=== PATIENT | male | born 2000 | race African-American/Black ===

== ENCOUNTER 2019-09-29 11:07 | Inpatient (IN) | payer OTHER ==
[~2019-09-29] VITALS: Ht 177.8 cm; Wt 72.6 kg
[2019-09-29 11:08] VITALS: BP 129/71
[2019-09-29 12:26] LABS: URINE BILIRUBIN NEGATIVE (Negative); URINE BLOOD NEGATIVE (Negative); URINE CLARITY CLEAR; URINE COLOR YELLOW; URINE GLUCOSE-RANDOM* NEGATIVE (Negative); URINE KETONES 3+ (Negative); URINE LEUKOCYTES-REFLEX NEGATIVE (Negative); URINE NITRITE-REFLEX NEGATIVE (Negative); URINE PROTEIN (DIPSTICK) NEGATIVE (Negative)
[2019-09-29 12:52] LABS: URINE REDUCING SUBSTANCE NEGATIVE
[2019-09-29 13:07] LABS: HEMATOCRIT 47.1 % (42.0-52.0); HEMOGLOBIN 15.3 gm/dL (14.0-18.0); MCH 27.9 pg (26.0-34.0); MCHC 32.6 g/dL (28.0-37.0); MCV 85.6 fL (80.0-100.0); PLATELET COUNT 145 thou/uL (150-400); RDW 13.5 % (10.5-14.5); WBC 17.4 thou/uL (4.0-11.0)
[2019-09-29 13:20] LABS: CALCIUM 9.7 mg/dL (8.5-10.1); CREATININE 0.9 mg/dL (0.7-1.3); POTASSIUM 3.7 mmol/L (3.5-5.1)
[2019-09-29 13:24] LABS: ALBUMIN 4.9 g/dL (3.4-5.0); TOTAL BILIRUBIN 0.9 mg/dL (<0.1-1.0); TOTAL PROTEIN 8.9 g/dL (6.4-8.2)
[2019-09-29 13:48] LABS: ABSOLUTE NEUTROPHILS 15.3 thou/uL (1.4-8.2); PLATELET ESTIMATE NORMAL
[2019-09-29] MEDS ORDERED: MIRALAX17 GM PO (17:12)
[2019-09-29] MEDS ORDERED: COLACE 100 MG100 MG PO (17:12)
[2019-09-29] MEDS ORDERED: IBUPROFEN 200200 M1 PO (17:12)
[2019-09-29] MEDS ORDERED: OXYCODONE HCL 55 MG PO (17:12)
[2019-09-29] MEDS ORDERED: ACETAMINOPHEN325 M1 PO (17:12)
[2019-09-29 20:30] VITALS: BP 121/61
--- NOTE | 2019-09-30 02:51 | NUR ---
PT ARRIVED FROM OR @ 1925 WITH FAMILY. A&OX4 ORIENTED TO ROOM. 3 LAP SITES INTACT NO DRAINGE. NEW IV INSERTED IN RT FA 20G AFTER X2 ATTEMPT AND FLUIDS INFUISING. PAIN MEDS GUVEN X1 THIS SHIFT AND PT KACI NIGHT TIME DIET WELL NO C/O OF N/V. CALL LIGHT IN PLACE AND WILL CONT WITH POC TILL EOS.
[2019-09-30 03:00] VITALS: BP 111/34
[2019-09-30 07:15] VITALS: BP 105/44
[2019-09-30 07:30] VITALS: BP 114/75
--- NOTE | 2019-09-30 09:51 | NUR ---
ASSUMED CARE AT 0700, SHIFT ASSESSMENT DONE, MEDS GIVEN, VSS. REPORTS PAIN, ON SCHEDULED PAIN MEDS. VSS, ON ROOM AIR. 3 DERMABOND SITES, CLEAN, DRY, INTACT. UP AD TRI, ON OBSERVATION STATUS, WILL CONTINUE TO ASSESS AND ASSIST WITH ADLs NEEDED.
[2019-09-30 10:48] VITALS: BP 105/44
--- NOTE | 2019-10-01 14:07 | PATH ---
[facility] [address] [place] [address] PATHOLOGY RPT PROCEDURE Name: DONNY REINOSO Room #: 433-I [facility] IN M.R.#: [id number] Admission: 09/29/19 Date of : 89 Discharge: 09/30/19 Report #: [id number] Path Case #: [id number] [facility] Accession Number: [id number] . 01 Material submitted: . appendix - APPENDIX . 01 Clinical history: . Acute appendicitis . 02 Diagnosis: Appendix "appendix, appendectomy": - Acute suppurative appendicitis with acute inflammation extending into the periappendiceal fat. . (SHA:lyric; 10/01/2019) S 10/01/2019 1327 Local . 02 Electronically signed: . Rony Figueroa MD, Pathologist NPI- [id number] . 01 Gross description: . The specimen is received in formalin, labeled "Donny Reinoso, appendix" and consists of an appendix measuring 8.8 cm in length and up to 1.1 cm in diameter with mesoappendix measuring 1.2 cm thick. The serosa is dusky mantilla-brown with thick fibrous adhesions. The margin is closed with a line of gladys and inked black. Sectioning reveals a dilated lumen containing red brown fecal material and no discrete fecaliths. Manager Mental [facility] sections are submitted in A1-A2. (SDY; 09/30/2019) SYU/SYU 09/30/[address] [place] [address] . 02 Pathologist provided ICD-10: K35.80 . 02 CPT . 388490 Specimen Comment: A courtesy copy of this report has been sent to [phone] Performed at: [address], [place] [id number] MD Catalino Koehler MD Phone: [phone] Performed at: [address] [id number] MD Holly Varner MD Phone: [phone]
== END 2019-09-30 17:27 | disposition home or self-care (01) | DRG 343 ==
LOC: ER 11:07 → 4S 16:37 → TBA 16:37 → 4S 19:56
PROVIDERS: Nurse Practitioner; ADMIT Surgery
PROC: 0DTJ4ZZ Resection of Appendix, Percutaneous Endoscopic Approach (ICD-10-PCS; principal; 2019-09-29)
DX: K35.80 Unspecified acute appendicitis (principal); Z79.891 Long term (current) use of opiate analgesic; Z79.899 Other long term (current) drug therapy
CPT/HCPCS: 10102; 50010; 50101; 50249; 50411; 50555; 50558; 50739; 50740; 52265; 53307; 53310; 53312; 54022; 54118; 56525; 56526; 62110; 62900; 70005